=== PATIENT | female | born 1960 | race Caucasian/White ===

== ENCOUNTER 2022-07-30 12:29 | Outpatient (CLI) | payer BC ==
[2022-07-30 13:04] LABS: Bilirubin Neg (Negative); Blood, Urine Negative (Negative); Glucose, Urine (Dipstick) Normal (Negative); Ketone, Urine Negative (Negative); Leukocyte Negative (Negative); Nitrite Negative (Negative); Protein, Urine (Dipstick) Negative (Neg-Trace); Specific Gravity, Urine 1.005 (1.005-1.030); Urobilinogen Normal mg/dL (Less than 2)
[2022-07-30 13:05] LABS: Clarity Clear (Clear)
[2022-07-30 13:12] LABS: Bacteria/HPF None Seen HPF (None Seen); RBC/HPF 0-3 HPF (0-3); Squamous Epithelial None Seen HPF (0-3); WBC/HPF None Seen HPF (0-3)
[2022-07-30 14:23] LABS: Hemoglobin 12.4 g/dL (12.0-15.5); Mean Corpuscular HGB CONC 32.6 g/dL (32.0-36.0); Mean Corpuscular Volume 91.8 fl (81.6-98.3); Mean Platelet Volume 10.2 fl (7.4-10.4); Platelet Count 257 10x3/uL (150-450); RBC Distribution Width 13.1 % (11.5-14.5); Red Blood Cell (RBC) Count 4.14 10x6/uL (3.90-5.03); White Blood Cell (WBC) Count 6.6 10x3/uL (3.5-10.5)
[2022-07-30 14:43] LABS: Anion Gap 13 mmol/L (10-20); BUN (Urea Nitrogen) 20 mg/dL (9.8-20.1); Calc. Creatinine Clearance 0 mL/min (70-130); Calcium 10.2 mg/dL (7.8-10.44); Carbon Dioxide 27 mmol/L (23-31); Chloride 103 mmol/L (98-107); Estimated GFR 47; Glucose 77 mg/dL (80-115); Potassium 4.2 mmol/L (3.5-5.1); Sodium 139 mmol/L (136-145)
[2022-07-30 14:50] LABS: INR-International Normal Ratio 1.1; PTT 28.6 sec (22.0-33.0); Prothrombin Time 11.4 sec (9.5-12.1)
== END 2022-07-30 12:30 | disposition home or self-care (01) ==
LOC: LABBT 12:29
PROVIDERS: ATTEND Urology
DX: Z01.818 Encounter for other preprocedural examination (principal); C56.9 Malignant neoplasm of unspecified ovary; N13.30 Unspecified hydronephrosis; N28.1 Cyst of kidney, acquired; R35.0 Frequency of micturition
CPT/HCPCS: 80048; 81001; 85027; 85610; 85730; 87086; 93005; 93010

== ENCOUNTER 2022-08-05 08:26 | Day surgery (SDC) | payer BC ==
[2022-08-01 14:16] VITALS: BMI 24.3
[2022-08-05] MEDS ORDERED: diphenhydrAMINE 50 MG/ML VIAL ONE (11:19)
[2022-08-05] MEDS ORDERED: Levofloxacin 500 mg/D5W 100 ml Premix Bag ONE (11:21)
[2022-08-05] MEDS ORDERED: Hydrocortisone Sod Succ/PF 100 mg/2 ml Vial IVP SCH (11:30)
[2022-08-05] MEDS ORDERED: Hydrocortisone Sod Succ/PF 100 mg/2 ml Vial ONE (11:33)
[2022-08-05] MEDS ORDERED: Lidocaine 1% PF 5 ML VIAL ONE (12:11)
[2022-08-05] MEDS ORDERED: Ondansetron PF 4 MG/2 ML Vial ONE (12:11)
[2022-08-05] MEDS ORDERED: PROPOFOL 200 MG/20 ML VIAL ONE (12:11)
[2022-08-05] MEDS ORDERED: Iopamidol 0 ML ONE (12:21)
[2022-08-05] MEDS ORDERED: Iopamidol 15 ML ONE ×2 (12:27)
[2022-08-05] MEDS ORDERED: Phenazopyridine HCl 100 MG TAB ONE (13:16)
[2022-08-05] MEDS ORDERED: Oxybutynin 5 MG TAB ONE (13:16)
[2022-08-05] MEDS ORDERED: hydrALAZINE 20 MG/ML VIAL ONE (13:27)
== END 2022-08-05 15:12 | disposition home or self-care (01) ==
LOC: SDC 08:26
PROVIDERS: ATTEND Urology
DX: N13.1 Hydronephrosis with ureteral stricture, not elsewhere classified (principal); N13.2 Hydronephrosis with renal and ureteral calculous obstruction; N13.4 Hydroureter; N28.1 Cyst of kidney, acquired; Z85.43 Personal history of malignant neoplasm of ovary; Z91.040 Latex allergy status; Z91.041 Radiographic dye allergy status; Z90.710 Acquired absence of both cervix and uterus
CPT/HCPCS: 74420; C1769; C2617; J0360; J1200; J1720; J1956; J2405; J2704; Q9967

== ENCOUNTER 2022-08-16 13:18 | Outpatient (CLI) | payer BC ==
[~2022-08-16 13:18] MED LIST: Furosemide 40 MG/4 ML VIAL ONE
== END 2022-08-16 13:19 | disposition home or self-care (01) ==
LOC: NM 13:18 → EDSTATUS 14:00
PROVIDERS: ATTEND Urology
DX: N13.30 Unspecified hydronephrosis (principal)
CPT/HCPCS: 78708; A4641; A9562; J1940